=== PATIENT | male | born 1965 | race Caucasian/White ===

== ENCOUNTER 2017-03-10 17:00 | Emergency (ER) | payer MEDICAID ==
[~2017-03-10] VITALS: Ht 172.7 cm; Wt 120.7 kg
[~2017-03-10 17:00] MED LIST: DIVA125T12; LEVE500T22; PHEN-250
[2017-03-10 17:38] VITALS: BP 147/87
== END 2017-03-10 17:55 | disposition home or self-care (01) ==
LOC: ER 17:00
DX: R56.9 Unspecified convulsions (principal); Z79.899 Other long term (current) drug therapy; Z76.0 Encounter for issue of repeat prescription

== ENCOUNTER 2017-09-16 23:29 | Emergency (ER) | payer MEDICAID ==
[~2017-09-16] VITALS: Ht 172.7 cm; Wt 120.7 kg
[2017-09-17 00:08] VITALS: BP 144/89
== END 2017-09-17 01:28 | disposition left against medical advice (07) ==
LOC: ER 23:37
DX: R07.81 Pleurodynia (principal); Z53.21 Procedure and treatment not carried out due to patient leaving prior to being seen by health care provider
CPT/HCPCS: 71101

== ENCOUNTER 2021-09-30 00:19 | Inpatient (IN) | payer MEDICAID ==
[~2021-09-30] VITALS: Ht 172.7 cm; Wt 124.7 kg
[~2021-09-30 00:19] MED LIST changes: -LEVE500T22; +LEVE500T32; -PHEN-250; +PHEN-250 PO
[2021-09-30 02:19] LABS: Basophils # (auto) 0 10 ^3/uL (0-0.2); Basophils % (auto) 0.3 % (0.0-2.0); Eosinophils # (auto) 0.1 10 ^3/uL (0-0.8); Eosinophils % (auto) 1.1 % (0.0-7.0); Hematocrit 45.3 % (41.0-53.0); Hemoglobin 15.8 g/dL (13.5-17.5); Lymphocytes % (auto) 25.6 % (10.0-50.0); Mean Corpuscular Hemoglobin 30.4 pg (28.0-32.0); Mean Corpuscular Hgb Conc. 34.8 g/dL (32.0-36.0); Mean Corpuscular Volume 87.3 fL (80.0-100.0); Monocytes % (auto) 8.7 % (0.0-12.0); Neutrophils # (auto) 7.5 10 ^3/uL (1.6-8.6); Neutrophils % (auto) 64.3 % (37.0-80.0); Nucleated Red Blood Cells % 0.2 %; Red Blood Cells 5.19 10^6/uL (4.5-5.90); White Blood Cell 11.7 10^3/uL (4.4-10.8)
[2021-09-30 02:35] LABS: Calcium 9.7 mg/dL (8.5-10.1); Potassium 3.9 mmol/L (3.5-5.1)
[2021-09-30 02:38] LABS: Albumin 3.6 g/dL (3.4-5.0); BUN/Creatinine Ratio 23.4
[2021-09-30 02:40] LABS: Bilirubin, Total 0.2 mg/dL (0.2-1.0); Total Protein 7.8 g/dL (6.4-8.2)
[2021-09-30 04:04] LABS: Urine Bacteria NONE SEEN /hpf (None Seen); Urine Blood Negative /uL (Negative); Urine Specific Gravity 1.015 (1.001-1.035); Urine WBC <1 /hpf (0 - 3)
[2021-09-30] MEDS ORDERED: SODIUM CHLORIDE 0.9% 1,000 ML IV ONE (07:30)
[2021-09-30] MEDS ORDERED: METOCLOPRAMIDE HCL 5MG/ml INJ 2ml VIAL IV ONE (07:30)
[2021-09-30] MEDS ORDERED: SODIUM CHLORIDE 0.9% 500 ML IVB ONE (07:30)
[2021-09-30] MEDS ORDERED: cefTRIAXone 1GM/50ML D5W 50 ML IV ONE (12:00)
[2021-09-30] MEDS ORDERED: metroNIDAZOLE 500MG/100ML 100 ML IV ONE (12:00)
[2021-09-30] MEDS ORDERED: MORPHINE SULFATE INJECTION 2 MG/ML SYRG IV PRN ×2 (13:00→14:15)
[2021-09-30] MEDS ORDERED: NITROGLYCERIN 0.4 MG SL TAB SL PRN (13:00)
[2021-09-30] MEDS ORDERED: LORazepam 0.5 MG TAB PO PRN (14:15)
[2021-09-30] MEDS ORDERED: hydrALAZINE HCL 20 MG/ML VL IV PRN (14:15)
[2021-09-30] MEDS ORDERED: FAMOTIDINE (10MG/ML) 2ML VL IV ONE (14:15)
[2021-09-30] MEDS ORDERED: ONDANSETRON HCL 4 MG/2 ML VIAL IV PRN (14:15)
[2021-09-30] MEDS ORDERED: HYDROcodone-ACET 5/325MG TAB PO PRN (14:15)
[2021-09-30] MEDS ORDERED: DOCUSATE SOD 100 MG CAP PO PRN (14:15)
[2021-09-30] MEDS ORDERED: ACETAMINOPHEN 325 MG TAB PO PRN (14:15)
[2021-09-30 15:59] LABS: Magnesium 1.8 mg/dL (1.6-2.6); Phosphorus 3.4 mg/dL (2.5-4.90)
[2021-09-30 16:20] LABS: Phenytoin (Dilantin) 3.2 ug/mL (10-20)
[2021-09-30 17:06] VITALS: BP 139/90
[2021-09-30 17:14] LABS: INR 1.07 (0.9-1.15); Partial Thromboplastin Time 28.5 sec (23.6-33.0)
[2021-09-30] MEDS: SODIUM CHLORIDE 0.9% 1,000 ML IV SCH (17:25)
[2021-09-30] MEDS ORDERED: TAMS1CAP25 PO (18:06)
[2021-09-30] MEDS ORDERED: DIVA500T13 PO (18:08)
[2021-09-30] MEDS ORDERED: DIVA1TAB39 PO (18:08)
[2021-09-30] MEDS: TAMSULOSIN HYDROCHLORIDE 0.4 MG CAP PO SCH (18:11)
[2021-09-30] MEDS ORDERED: ATO40T PO (19:39)
[2021-09-30 22:00] VITALS: BP 129/76
[2021-09-30] MEDS: metroNIDAZOLE 500MG/100ML 100 ML IV SCH (22:20)
[2021-09-30] MEDS: ATORVASTATIN 20 MG TAB PO SCH (22:21)
[2021-09-30] MEDS: PHENYTOIN SODIUM 100 MG CAP PO SCH (22:21)
[2021-09-30] MEDS: levETIRAcetam 500 MG TAB PO SCH (22:22)
[2021-10-01 05:00] VITALS: BP 127/64
[2021-10-01] MEDS: PHENYTOIN SODIUM 100 MG CAP PO SCH ×3 (06:13→21:41)
[2021-10-01] MEDS: metroNIDAZOLE 500MG/100ML 100 ML IV SCH ×3 (06:13→21:42)
[2021-10-01 06:43] LABS: Basophils # (auto) 0 10 ^3/uL (0-0.2); Basophils % (auto) 0.3 % (0.0-2.0); Eosinophils # (auto) 0.1 10 ^3/uL (0-0.8); Eosinophils % (auto) 1.2 % (0.0-7.0); Hematocrit 40.9 % (41.0-53.0); Hemoglobin 14.3 g/dL (13.5-17.5); Lymphocytes # (auto) 2.6 10 ^3/uL (0.4-5.4); Lymphocytes % (auto) 24.2 % (10.0-50.0); Mean Corpuscular Hemoglobin 30.5 pg (28.0-32.0); Mean Corpuscular Volume 87.3 fL (80.0-100.0); Monocytes % (auto) 8.9 % (0.0-12.0); Neutrophils # (auto) 7.1 10 ^3/uL (1.6-8.6); Neutrophils % (auto) 65.4 % (37.0-80.0); Nucleated Red Blood Cells % 0.1 %; Red Blood Cells 4.69 10^6/uL (4.5-5.90); Red Cell Distribution Width 13.1 % (11.8-14.3); White Blood Cell 10.8 10^3/uL (4.4-10.8)
[2021-10-01 06:54] LABS: INR 1.04 (0.9-1.15); Partial Thromboplastin Time 28.9 sec (23.6-33.0)
[2021-10-01 07:04] LABS: Potassium 3.9 mmol/L (3.5-5.1)
[2021-10-01 07:18] LABS: Albumin 3.2 g/dL (3.4-5.0); BUN/Creatinine Ratio 16.4; Bilirubin, Total 0.4 mg/dL (0.2-1.0); CRP High Sensitivity 5.33 mg/dL (< 0.3); Calcium 8.8 mg/dL (8.5-10.1); Magnesium 1.7 mg/dL (1.6-2.6); Phosphorus 3.1 mg/dL (2.5-4.90); Total Protein 7.1 g/dL (6.4-8.2)
[2021-10-01 09:00] VITALS: BP 128/82
[2021-10-01] MEDS ORDERED: ENOXAPARIN SOD 40 MG/0.4 ML SYRINGE SC SCH (10:00)
[2021-10-01] MEDS ORDERED: ASPirin 81 mg TAB PO SCH (10:00)
[2021-10-01] MEDS ORDERED: FAMOTIDINE (10MG/ML) 2ML VL IV SCH (10:00)
[2021-10-01] MEDS: levETIRAcetam 500 MG TAB PO SCH ×2 (10:02→21:48)
[2021-10-01] MEDS: cefTRIAXone 1GM/50ML D5W 50 ML IV SCH (10:03)
[2021-10-01] MEDS: SODIUM CHLORIDE 0.9% 1,000 ML IV SCH ×2 (10:03→21:40)
[2021-10-01 13:00] VITALS: BP 135/84
[2021-10-01 17:02] VITALS: BP 127/81
[2021-10-01] MEDS: TAMSULOSIN HYDROCHLORIDE 0.4 MG CAP PO SCH (18:35)
[2021-10-01] MEDS: ATORVASTATIN 20 MG TAB PO SCH (21:41)
[2021-10-01 22:54] VITALS: BP 141/66
[2021-10-02] MEDS: metroNIDAZOLE 500MG/100ML 100 ML IV SCH (05:14)
[2021-10-02] MEDS: PHENYTOIN SODIUM 100 MG CAP PO SCH (05:15)
[2021-10-02 05:30] VITALS: BP 121/71
[2021-10-02 06:08] LABS: Basophils # (auto) 0 10 ^3/uL (0-0.2); Basophils % (auto) 0.4 % (0.0-2.0); Eosinophils # (auto) 0.2 10 ^3/uL (0-0.8); Eosinophils % (auto) 2.5 % (0.0-7.0); Hematocrit 38.8 % (41.0-53.0); Hemoglobin 13.3 g/dL (13.5-17.5); Lymphocytes % (auto) 34.6 % (10.0-50.0); Mean Corpuscular Hemoglobin 30.1 pg (28.0-32.0); Mean Corpuscular Hgb Conc. 34.2 g/dL (32.0-36.0); Mean Corpuscular Volume 87.9 fL (80.0-100.0); Monocytes # (auto) 0.9 10 ^3/uL (0-1.3); Neutrophils # (auto) 4.6 10 ^3/uL (1.6-8.6); Neutrophils % (auto) 52.5 % (37.0-80.0); Red Blood Cells 4.42 10^6/uL (4.5-5.90); Red Cell Distribution Width 13.2 % (11.8-14.3); White Blood Cell 8.7 10^3/uL (4.4-10.8)
[2021-10-02 06:34] LABS: Calcium 8.6 mg/dL (8.5-10.1); Potassium 3.8 mmol/L (3.5-5.1)
[2021-10-02 06:37] LABS: BUN/Creatinine Ratio 14.8
[2021-10-02] MEDS: cefTRIAXone 1GM/50ML D5W 50 ML IV SCH (09:00)
[2021-10-02] MEDS ORDERED: LEVO500T31 PO (09:36)
[2021-10-02] MEDS ORDERED: METR500T PO (09:36)
[2021-10-02] MEDS: levETIRAcetam 500 MG TAB PO SCH (09:53)
[2021-10-02 10:49] VITALS: BP 119/72
== END 2021-10-02 13:40 | disposition home or self-care (01) | DRG 244 ==
LOC: ER 00:19 → OVERFLOW 12:51 → CENTRAL 15:39
PROVIDERS: ADMIT Hospitalist; ATTEND Internal Medicine
DX: K57.32 Diverticulitis of large intestine without perforation or abscess without bleeding (principal); E66.01 Morbid (severe) obesity due to excess calories; K52.9 Noninfective gastroenteritis and colitis, unspecified; K21.9 Gastro-esophageal reflux disease without esophagitis; E78.5 Hyperlipidemia, unspecified; G40.909 Epilepsy, unspecified, not intractable, without status epilepticus; N40.0 Benign prostatic hyperplasia without lower urinary tract symptoms; Z68.41 Body mass index [BMI] 40.0-44.9, adult; I10 Essential (primary) hypertension; Z20.822 Contact with and (suspected) exposure to COVID-19
CPT/HCPCS: 36415; 74176; 80048; 80053; 80061; 80164; 80185; 81001; 82542; 82550; 82728; 83036; 83615; 83690; 83735; 83880; 84100; 84443; 84484; 84550; 85025; 85379; 85610; 85652; 85730; 86141; 87040; 87086; 87088; 87205; 96361; 96365; 96375; G0378; J0696; J3490